=== PATIENT | female | born 1985 | race Caucasian/White ===

== ENCOUNTER 2022-10-04 15:36 | Emergency (ER) | payer BC, SELFPAY ==
--- NOTE | 2022-10-04 15:43 | ED.URI ---
HPI - URI/Sore Throat General Chief Complaint: Upper Respiratory Infection Stated Complaint: COUGH/BODY ACHES/CHILLS/HEADACHE Time Seen by Provider: 10/04/22 15:43 Source: patient Mode of arrival: ambulatory Limitations: no limitations History of Present Illness HPI Narrative: 37-year-old female presents with complaint cough, nasal congestion, headaches, body aches, chills for 3 days. Taking [id number] DayQuil to treat symptoms. Denies nausea vomiting diarrhea. No chest pain or shortness breath. All systems reviewed and negative except as noted above. Related Data Allergies Allergy/AdvReac Type Severity Reaction Status Date / Time No Known Allergies Allergy Verified 10/04/22 15:47 Review of Systems Review of Systems: CONSTITUTIONAL: Denies fever. Reports chills, or sweats. EYES: Denies visual changes, redness, or discharge. ENT: Reports rhinorrhea, congestion, sore throat. Denies otalgia. CARDIOVASCULAR: Denies chest pain, palpitations, or edema. RESPIRATORY: Reports cough. Denies dyspnea. GASTROINTESTINAL: Denies abdominal pain, nausea, vomiting, or diarrhea. GENITOURINARY: Denies dysuria or hematuria. SKIN: Denies rash or itching. MUSCULOSKELETAL: Denies back pain, joint pain, or myalgia. NEUROLOGIC: Denies headache, numbness, or weakness. PSYCHIATRIC: Denies anxiety or depression. All other systems reviewed are negative, except as documented in HPI. [facility] Past Medical History Medical History Abnormal Pap smear of cervix 08/01/2010 [facility] hpv positive/ colpo 08/23/2010 -Benign/ 2013 ascus +hpv; 03/28/15 ascus neg hpv; Anxiety HPV in female Panic attack (~03/18/12) Surgical History Surgical History History of colposcopy with cervical biopsy (08/23/10) benign Family History Family History Mother Patient's mother is in good health Father Patient's father is in good health Sibling Patient's sister is in good health Patient's brother is in good health Other Malignant neoplasm of lung maternal aunt Malignant neoplasm of prostate maternal uncle Other Family history of lung cancer Social History Social History (Updated 04/30/22 @ 14:36 by Nakia Ngo [facility]) Smoking status: Never smoker Alcohol intake: never Substance use: never Substance use type: does not use Living arrangements: other Additional living arrangements comments: single Occupation/Education: occupation 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 There is no relevant family history pertinent to the presenting complaint. Exam Narrative: GENERAL: This is a well-nourished, well-developed patient, in no apparent distress. HEAD: normocephalic, atraumatic. EYES: PERRL. Sclera clear/white. Vision is grossly intact. EARS: External ears normal, auditory canals clear and without drainage, TMs normal without perforation. Hearing grossly intact. NOSE: External nose normal with clear nasal drainage. THROAT: Mucous membranes moist, posterior pharynx clear. NECK: Neck supple, non-tender without lymphadenopathy, masses or thyromegaly. CARDIOVASCULAR: Regular rate and rhythm without murmurs, gallops, or rubs. RESPIRATORY: Clear to auscultation. Breath sounds equal bilaterally. No wheezes, rales, or rhonchi. SKIN: warm, Dry, intact with no suspicious lesions or rash, good texture and turgor. NEURO: awake, alert, and oriented to person, place and time. There were no obvious focal neurologic abnormalities. EXTREMITIES: No joint tenderness, effusion, or edema noted. Course Course Level of Care:
[2022-10-04 15:56] VITALS: BP 114/78; PULSE 84; RESP 16; TEMP 36.5; O2SAT 98
== END 2022-10-04 16:10 | disposition home or self-care (01) ==
PROVIDERS: Emergency Provider Nurse Practitioner Family
DX: U07.1 COVID-19 (principal)
CPT/HCPCS: 87426; 87804; 99212; C9803; G0463

== ENCOUNTER 2023-05-13 17:52 | Emergency (ER) | payer BC, SELFPAY ==
--- NOTE | 2023-05-13 17:54 | ED.URI ---
HPI - URI/Sore Throat General Chief Complaint: Upper Respiratory Infection Stated Complaint: Cough Time Seen by Provider: 05/13/23 17:54 Source: patient Mode of arrival: ambulatory Limitations: no limitations History of Present Illness HPI Narrative: Sparkle is a 37-year-old female patient presenting to the clinic today with complaints of a cough x2 weeks. She reports cough is nonproductive. Denies any known fever or chills. Denies any chest pain or shortness breath. Related Data Allergies Allergy/AdvReac Type Severity Reaction Status Date / Time No Known Allergies Allergy Verified 05/13/23 17:58 Review of Systems Review of Systems: Pertinent positives per HPI. Patient denies any fever, chills, rash, headache, visual changes, dizziness,runny nose, sore throat, shortness of breath, chest pain, palpitations, nausea, vomiting, diarrhea, constipation, abdominal pain, or any urinary issues. [facility] Past Medical History Medical History Abnormal Pap smear of cervix 08/01/2010 [facility] hpv positive/ colpo 08/23/2010 -Benign/ 2012 ascus +hpv; 03/28/15 ascus neg hpv; Anxiety HPV in female Panic attack (~03/18/12) Surgical History Surgical History History of colposcopy with cervical biopsy (08/23/10) benign Family History Family History Mother Patient's mother is in good health Father Patient's father is in good health Sibling Patient's sister is in good health Patient's brother is in good health Other Malignant neoplasm of lung maternal aunt Malignant neoplasm of prostate maternal uncle Other Family history of lung cancer Social History Social History Smoking status: Never smoker Alcohol intake: never Substance use: never Substance use type: does not use Living arrangements: other Additional living arrangements comments: single Occupation/Education: occupation 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 There is no relevant family history pertinent to the patient complaint. Exam Narrative: General: Well-developed, well nourished, in no apparent distress Head: Normocephalic, atraumatic Eyes: Pupils equally round and reactive to light bilaterally, EOM intact, sclera and conjunctive clear, no discharge, lids normal Ears: TMs intact and clear, ear canals clear, no drainage, grossly hearing normal. Nose: Nares patent, clear discharge, no inflammation, no sinus tenderness. Mouth: Oropharynx without lesions or masses, good dentition, MMM. Neck: Supple, trachea midline, no enlargement of anterior or posterior cervical nodes, no thyroid masses or goiter palpable. Cardio: Regular rate and rhythm, s1 and s2 normal, no murmur appreciated. Resp: Faint expiratory wheezing heard over the right upper and middle lobes posteriorly, no rhonchi, rales, or rubs Course Course Emergency Course: Portions of this record may have been created with voice recognition software. Level of Care: Express Care Visit Vital Signs Vital signs: Vital signs reviewed MDM - URI/Sore Throat MDM Narrative Medical decision making narrative: At the time of visit patient is resting comfortably on the exam table. I suspect patient has acute bronchitis. Prescription for prednisone and albuterol inhaler was sent to the pharmacy and supportive measures were discussed with the patient. She voiced understanding discharge instructions agrees to treatment plan. Differential Diagnosis Differential diagn
[2023-05-13 17:59] VITALS: BP 112/76; PULSE 79; RESP 16; TEMP 36.6; O2SAT 99
== END 2023-05-13 18:12 | disposition home or self-care (01) ==
PROVIDERS: Emergency Provider Nurse Practitioner Family
DX: J40 Bronchitis, not specified as acute or chronic (principal)
CPT/HCPCS: 99213; G0463

== ENCOUNTER 2023-08-20 10:05 | Emergency (ER) | payer BC, SELFPAY ==
--- NOTE | 2023-08-20 10:10 | ED.URI ---
HPI - URI/Sore Throat General Chief Complaint: Upper Respiratory Infection Stated Complaint: Cold symptoms Time Seen by Provider: 08/20/23 10:11 Source: patient Mode of arrival: ambulatory Limitations: no limitations History of Present Illness HPI Narrative: Sparkle is a 38-year-old female patient presenting to the clinic today with complaints of runny nose, cough, congestion, sneezing, and fatigue x3 days. She reports no known fever or chills. Denies any shortness of breath or chest pain. MD elicited complaint: cough, nasal congestion and other (Runny nose, sneezing) Related Data Allergies Allergy/AdvReac Type Severity Reaction Status Date / Time No Known Allergies Allergy Verified 07/16/23 15:13 Review of Systems Review of Systems: Pertinent positives per HPI. Patient denies any fever, chills, rash, headache, visual changes, dizziness, shortness of breath, chest pain, palpitations, nausea, vomiting, diarrhea, constipation, abdominal pain, or any urinary issues. [facility] Past Medical History Medical History Abnormal Pap smear of cervix 08/01/2010 [facility] hpv positive/ colpo 08/23/2010 -Benign/ 2012 ascus +hpv; 03/28/15 ascus neg hpv; Anxiety HPV in female Panic attack (~03/18/12) Surgical History Surgical History History of colposcopy with cervical biopsy (08/23/10) benign Family History Family History Mother Patient's mother is in good health Father Patient's father is in good health Sibling Patient's sister is in good health Patient's brother is in good health Other Malignant neoplasm of lung maternal aunt Malignant neoplasm of prostate maternal uncle Other Family history of lung cancer Social History Social History Smoking status: Never smoker Second hand tobacco smoke exposure: No Alcohol intake: never Substance use: never Substance use type: does not use Living arrangements: other Additional living arrangements comments: single Occupation/Education: occupation 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 There is no relevant family history pertinent to the patient complaint. Exam Narrative: General: Well-developed, well nourished, in no apparent distress Head: Normocephalic, atraumatic Eyes: Pupils equally round and reactive to light bilaterally, EOM intact, sclera and conjunctive clear, no discharge, lids normal Ears: TMs intact and congested, ear canals clear, no drainage, grossly hearing normal. Nose: Nares patent, clear nasal discharge, no inflammation, no sinus tenderness. Mouth: Oral pharynx without lesions or masses, good dentition, MMM. Neck: Supple, trachea midline, no enlargement of anterior or posterior cervical nodes, no thyroid masses or goiter palpable. Cardio: Regular rate and rhythm, s1 and s2 normal, no murmur appreciated. Resp: Clear to auscultation bilaterally, no rhonchi, rales, wheezing or rubs Course Course Emergency Course: Portions of this record may have been created with voice recognition software. Level of Care: Express Care Visit Vital Signs Vital signs: Vital signs reviewed MDM - URI/Sore Throat MDM Narrative Medical decision making narrative: At the time of visit patient is resting comfortably on the exam table. Patient appears to be nontoxic. COVID and influenza testing was performed. COVID testing was negative. Influenza test was positive for influenza B. work note was given. Supportive measures were
[2023-08-20 10:11] VITALS: BP 125/80; PULSE 90; RESP 16; TEMP 36.9; O2SAT 99
== END 2023-08-20 10:35 | disposition home or self-care (01) ==
PROVIDERS: Emergency Provider Nurse Practitioner Family
DX: J10.1 Influenza due to other identified influenza virus with other respiratory manifestations (principal); Z20.822 Contact with and (suspected) exposure to COVID-19
CPT/HCPCS: 87426; 87804; 99213; G0463

== ENCOUNTER 2024-02-10 11:31 | Emergency (ER) | payer BC, SELFPAY ==
--- NOTE | 2024-02-10 11:41 | ED.HA ---
HPI - Headache General Chief Complaint: Headache Stated Complaint: Headaches Time Seen by Provider: 02/10/24 11:43 Source: patient Mode of arrival: ambulatory Limitations: no limitations History of Present Illness HPI Narrative: 38-year-old female presents with concern for intermittent headache. She reports bilateral headache that is intermittent. Reports she took Tylenol that did not help her headache that she started taking DayQuil and it did help her headache. She reports general malaise but denies fever, body aches, chills. Reports nighttime sweats. She denies thunderclap headache, weakness in any extremity. She denies vision changes. She reports initially she had a sore throat. She denies nausea vomiting MD elicited complaint: headache Related Data Allergies Allergy/AdvReac Type Severity Reaction Status Date / Time No Known Allergies Allergy Verified 02/10/24 11:42 Review of Systems Review of Systems: CONSTITUTIONAL: Reports malaise, sweats. Denies chills or fever. EYES: Denies visual changes, redness, or discharge. ENT: Denies rhinorrhea, congestion, sinus pain, otalgia. Reports 1 time sore throat. CARDIOVASCULAR: Denies chest pain, palpitations, or edema. RESPIRATORY: Denies cough or dyspnea. GASTROINTESTINAL: Denies abdominal pain, nausea, vomiting SKIN: Denies rash or itching. MUSCULOSKELETAL: Denies back pain, joint pain, or myalgia. NEUROLOGIC: Denies numbness, weakness. Reports headache. All systems reviewed & are unremarkable except as noted in HPI and below PMFSH Past Medical History Medical History Abnormal Pap smear of cervix 08/01/2010 [facility] hpv positive/ colpo 08/23/2010 -Benign/ 2013 ascus +hpv; 03/28/15 ascus neg hpv; Anxiety HPV in female Panic attack (~03/18/12) Surgical History Surgical History History of colposcopy with cervical biopsy (08/23/10) benign Family History Family History Mother Patient's mother is in good health Father Patient's father is in good health Sibling Patient's sister is in good health Patient's brother is in good health Other Malignant neoplasm of lung maternal aunt Malignant neoplasm of prostate maternal uncle Other Family history of lung cancer Social History Social History Smoking status: Never smoker Second hand tobacco smoke exposure: No Alcohol intake: never Substance use: never Substance use type: does not use Living arrangements: other Additional living arrangements comments: single Occupation/Education: occupation 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 There is no relevant family history pertinent to the presenting complaint Exam Narrative: GENERAL: Well-appearing, well-nourished, and in no acute distress. HEAD: Normocephalic, atraumatic. EYES: PERRLA, sclera clear, and EOMI. No nystagmus. ENT: Nares clear. Mucous membranes moist. TM pearly dial with sharp light reflex bilaterally; no tragal tenderness. Oropharynx without erythema or lesions. Tonsils not enlarged and without exudate. NECK: Supple. No lymphadenopathy. No jugular venous distension, thyromegaly, or carotid bruits. Carotids were easily palpable bilaterally. CHEST: No respiratory distress. Clear to auscultation. No bony deformities, no asymmetry. Speaks in full sentences. HEART: Regular rate and rhythm. No murmur heard. Normal peripheral pulses. SKIN: Warm, dry, no visible rash. NEURO: Alert and oriented x3. No focal deficits. Cranial nerves II through
[2024-02-10 11:44] VITALS: BP 128/89; PULSE 80; RESP 14; TEMP 36.6; O2SAT 100
[2024-02-10 12:31] LABS: EDSTREPNEGPOS1 Presumptive Negative
== END 2024-02-10 12:09 | disposition home or self-care (01) ==
PROVIDERS: Emergency Provider Nurse Practitioner
DX: R51.9 Headache, unspecified (principal)
CPT/HCPCS: 87081; 87880; 99213; G0463

== ENCOUNTER 2024-02-15 16:24 | Emergency (ER) | payer BC, SELFPAY ==
--- NOTE | 2024-02-15 16:32 | ED.HA ---
HPI - Headache General Chief Complaint: Headache Stated Complaint: HEADACHE Time Seen by Provider: 02/15/24 16:46 Source: patient, RN notes reviewed and old records reviewed Mode of arrival: ambulatory Limitations: no limitations History of Present Illness HPI Narrative: patient presents with complaints of intermittent headache, runny nose, fatigue, poor sleep, for approximately 10 days. She reports that she has been taking Sudafed and Zyrtec for her symptoms. Reports some days are good, some days are not so good. She denies any headache right this minute. She denies fever, chills, sweats. She voices no other concerns or complaints at this time Related Data Allergies Allergy/AdvReac Type Severity Reaction Status Date / Time No Known Allergies Allergy Verified 02/15/24 16:25 Review of Systems Review of Systems: All systems reviewed & are unremarkable except as noted in HPI and below Constitutional: Constitutional: Reports as per HPI and Reports no additional constitutional complaints ENT: Reports system reviewed and no additional complaints, except as documented Cardiovascular: Cardiovascular: Reports no additional cardiovascular complaints Respiratory: Respiratory: Reports no additional respiratory complaints Gastrointestinal: Gastrointestinal: Reports no additional gastrointestinal complaints PMFSH Past Medical History Medical History Abnormal Pap smear of cervix 08/01/2010 [facility] hpv positive/ colpo 08/23/2010 -/ 2012 ascus +hpv; 03/28/15 ascus neg hpv; Anxiety HPV in female Panic attack (~03/18/12) Surgical History Surgical History History of colposcopy with cervical biopsy (08/23/10) benign Family History Family History Mother Patient's mother is in good health Father Patient's father is in good health Sibling Patient's sister is in good health Patient's brother is in good health Other Malignant neoplasm of lung maternal aunt Malignant neoplasm of prostate maternal uncle Other Family history of lung cancer Social History Social History Smoking status: Never smoker Second hand tobacco smoke exposure: No Alcohol intake: never Substance use: never Substance use type: does not use Living arrangements: other Additional living arrangements comments: single Occupation/Education: occupation 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 There is no relevant family history pertinent to the patient complaint. Exam Const: General: cooperative, no acute distress, alert and awake Orientation/consciousness: oriented to person, oriented to place and oriented to time HENMT: Head: normal to inspection Resp: Effort & Inspection: normal respiratory effort and able to speak in complete sentences Auscultation: clear to auscultation bilaterally, no crackles, no rales, no rhonchi and no wheezes Cardio: Palpation: normal PMI Rate: regular rate Rhythm: regular rhythm Heart sounds: S1 normal heart sound present and S2 normal heart sound present Neuro: General: oriented to person, oriented to place and oriented to time Cranial nerves: Yes CN's II-XII intact bilaterally Psych: Appearance: grossly normal Thought process: Normal thought process present Insight: Good insight present (Psych) Judgement: Good judgement present (Psych) Course Course Level of Care: Express Care Visit Vital Signs Vital signs: Reviewed MDM - Headache MDM Narrative Medical decision making narr
[2024-02-15 16:34] VITALS: BP 116/77; PULSE 107; RESP 16; TEMP 36.7; O2SAT 98
== END 2024-02-15 17:11 | disposition home or self-care (01) ==
PROVIDERS: Emergency Provider Nurse Practitioner Family
DX: B34.9 Viral infection, unspecified (principal); Z20.822 Contact with and (suspected) exposure to COVID-19
CPT/HCPCS: 87426; 99213; G0463

== ENCOUNTER 2024-02-18 14:17 | Observation (INO) | payer BC, SELFPAY ==
--- NOTE | ~2024-02-18 | CT_ITS ---
EXAMINATION: CT brain wo con DATE: 02/18/2024 15:03 INDICATION: headache . TECHNIQUE: Computed tomography (CT) of the head was performed without intravenous contrast. The mA wa s adjusted according to patient size. Iterative reconstruction technique was employed. The dose-lengt h product was 605.33 mGy-cm. COMPARISON: None. FINDINGS: No acute intracranial hemorrhage or extra-axial fluid collection. 1.5 x 1.4 x 1.4 mildly irregular and lobulated, hyperdense mass in the right frontal lobe. No signifi cant surrounding vasogenic edema. No hydrocephalus or herniation. No acute ischemic infarct. Unremarkable dural venous sinus attenuation. No acute osseous abnormality. The aerated spaces are clear. Preet cisterna magna. IMPRESSION: 1.5 cm right frontal lobe mass. Recommend MRI of the brain without and with contrast for further eval uation. Reviewed, dictated and finalized at location K. IMPRESSION: 1.5 cm right frontal lobe mass. Recommend MRI of the brain without and with con trast for further evaluation.
--- NOTE | ~2024-02-18 | MR_ITS ---
MRI of the brain Clinical History: Frontal mass Technique: Axial and sagittal T1-weighted images were acquired. These were followed by axial T2-weigh bryn, diffusion weighted, gradient, and FLAIR images. Following intravenous administration of 17 cc Mu ltiHance gadolinium, T1-weighted fat-sat imaging was performed in the axial, coronal, and sagittal pl anes. Findings: 1.8 cm right frontal lobe mass demonstrates predominant T2 hyperintensity with small foci o f low signal, with a low signal rim, most compatible with cavernoma. There is minimal amorphous T1 in trinsic hyperintensity lesion. There are additional smaller focal areas of hyperintense signal on FLA IR images, notably in the right hina (axial FLAIR image 9), right temporal lobe (axial FLAIR image 13 ), and right frontoparietal region (axial FLAIR image 18). These additional areas of FLAIR hyperinten sity demonstrate corresponding low signal on gradient images. There is prominent cisterna magna versus arachnoid cyst. Remaining subarachnoid spaces and ventricles are nondilated. Orbits are unremarkable. Paranasal sinuses and mastoid air sinuses are essentially c lear. Major intracranial flow voids are intact. Sagittal midline structures are intact. No abnormal postcontrast enhancement identified. IMPRESSION: 1.8 cm right frontal lobe mass is compatible with cavernoma, and corresponds with lesion seen on CT s can. Several additional scattered smaller parenchymal lesions, as detailed above, which could reflect gene tional smaller less well delineated cavernomas. Arachnoid cyst versus prominent cisterna magna. Reviewed, dictated and finalized at location . IMPRESSION: 1.8 cm right frontal lobe mass is compatible with cavernoma, and corresponds wi th lesion seen on CT scan. Several additional scattered smaller parenchymal lesions, as detailed above, wh ich could reflect additional smaller less well delineated cavernomas. Arachnoid cyst versus prominent cisterna magna.
--- NOTE | ~2024-02-18 | US_ITS ---
US abdomen limited INDICATION: Elevated liver function tests. PROCEDURE: Realtime right upper abdominal ultrasound. COMPARISON: No prior studies for comparison. FINDINGS: The pancreas is normal without focal mass or pancreatic ductal dilation. Liver echotexture is normal without focal mass or intrahepatic biliary dilatation. There is normal directional flow i n the portal vein. There is gallbladder sludge. No definite gallstones, gallbladder wall thickening or pericholecystic f luid. Common bile duct measures 4 mm. No sonographic Thurman's sign. IMPRESSION: 1: Gallbladder sludge. Reviewed, dictated and finalized at location B. IMPRESSION: 1: Gallbladder sludge.
[2024-02-18 14:20] VITALS: BP 119/83; PULSE 123; RESP 16; TEMP 36.8; O2SAT 99
[2024-02-18 14:41] VITALS: BP 116/81; PULSE 114; RESP 19; O2SAT 99
[2024-02-18 15:57] VITALS: BP 102/69; PULSE 93; RESP 18; O2SAT 98
[2024-02-18 16:06] LABS: Basophils Absolute Auto 0.1 K/mm3 (0.0-0.1); Basophils Percent Auto 0.6 % (0.2-1.2); Eosinophils Percent Auto 0.3 % (0-4.4); Hematocrit 39.9 % (37.0-47.0); Hemoglobin 13.8 g/dL (12.0-15.0); Immature Granulocyte Absolute 0.03 K/mm3 (0.00-0.031); Immature Granulocyte Percent A 0.4 % (0-0.5); Lymphocytes Absolute Auto 4.13 K/mm3 (0.9-3.2); Lymphocytes Percent Auto 51.9 % (18.3-44.2); Mean Corpuscular HGB Conc 34.6 g/dl (32-36); Mean Corpuscular Hemoglobin 30.2 pg (26-34); Mean Corpuscular Volume 87.3 fl (80-100); Mean Platelet Volume 8.4 fl (7.4-10.4); Monocytes Absolute Auto 0.4 K/mm3 (0.1-0.6); Monocytes Percent Auto 4.9 % (2.6-8.5); Neutrophils Absolute Auto 3.3 K/mm3 (1.3-6.7); Neutrophils Percent Auto 41.9 % (45.5-73.1); Platelet Count Result 227 k/mm3 (150-375); Red Blood Count 4.57 M/mm3 (4.2-5.4)
[2024-02-18] MEDS: KETOROLAC 30 MG/ML VIAL (*BKC) IV PUSH (16:18)
[2024-02-18 16:21] LABS: Alanine Aminotransferase 76 U/L (6-35); Alkaline Phosphatase 146 U/L (38-126); Anion Gap 7 mmol/L (4-12); Aspartate Amino Transferase 70 U/L (14-36); Blood Urea Nitrogen 10 mg/dL (7-17); CRP 5.7 mg/dL (<1.0); Calcium 8.5 mg/dL (8.4-10.2); Carbon Dioxide 27 mmol/L (22-30); Chloride 99 mmol/L (98-107); Estimated CRCL calculation 105 ml/min; Estimated Glomerular Filt Rate > 60; Glucose 98 mg/dL (65-110); Potassium 3.9 mmol/L (3.4-5.0); Sodium 133 mmol/L (137-145)
[2024-02-18 16:30] LABS: Platelet Estimate Adequate (Adequate); Schistocytes None Seen
[2024-02-18 16:31] LABS: Atypical Lymphocytes Present
--- NOTE | 2024-02-18 17:01 | ED.HA ---
HPI - Headache General Chief Complaint: Headache Stated Complaint: headaches for a couple weeks Time Seen by Provider: 02/18/24 14:37 Source: patient Mode of arrival: ambulatory Limitations: no limitations History of Present Illness HPI Narrative: 38-year-old otherwise healthy here with the complaints of having frontal headaches on and off for quite some time. Patient states that she is getting more frequently. She denies any fever or chills. No history of nausea vomiting. Denies any blurred vision. Patient states that she has not seen primary doctor for while ,she is in the process of finding a new doctor . She denies any weakness. Sleep is very disturbed elicited complaint: headache Onset (ago): week(s) Onset description: gradually Location: right Severity: moderate Quality & Timing: throbbing Exacerbating factors: none Relieving factors: nothing Context: occurred at rest Associated symptoms: none Related Data Allergies Allergy/AdvReac Type Severity Reaction Status Date / Time No Known Allergies Allergy Verified 02/18/24 14:18 Review of Systems Review of Systems: All systems reviewed & are unremarkable except as noted in HPI and below Constitutional: Constitutional: Reports no additional constitutional complaints Eyes: Eyes: Reports no additional eye complaints ENT: Reports system reviewed and no additional complaints, except as documented Cardiovascular: Cardiovascular: Reports no additional cardiovascular complaints Respiratory: Respiratory: Reports no additional respiratory complaints Gastrointestinal: Gastrointestinal: Reports no additional gastrointestinal complaints Musculoskeletal: Musculoskeletal: Reports no additional musculoskeletal complaints Neurologic: Reports system reviewed and no additional complaints, except as documented Psychiatric: Psychiatric: Reports no additional psychiatric complaints Endocrine: Endocrine: Reports no additional endocrine complaints Hematologic/Lymphatic: Hematologic/Lymphatic: Reports no additional hematologic/lymphatic complaints [facility] Past Medical History Medical History Abnormal Pap smear of cervix 08/01/2010 [facility] hpv positive/ colpo 08/23/2010 -/ 2013 ascus +hpv; 03/28/15 ascus neg hpv; Anxiety HPV in female Panic attack (~03/18/12) Surgical History Surgical History History of colposcopy with cervical biopsy (08/23/10) benign Family History Family History Mother Patient's mother is in good health Father Patient's father is in good health Sibling Patient's sister is in good health Patient's brother is in good health Other Malignant neoplasm of lung maternal aunt Malignant neoplasm of prostate maternal uncle Other Family history of lung cancer Social History Social History Smoking status: Never smoker Second hand tobacco smoke exposure: No Alcohol intake: never Substance use: never Substance use type: does not use Living arrangements: other Additional living arrangements comments: single Occupation/Education: occupation 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 HEAD: Normocephalic, atraumatic. EYES: PERRLA and EOMI. ENT: Nares clear, no rhinorrhea or epistaxis. Mucous membranes moist. NECK: Supple. CHEST: Clear to auscultation. No respiratory distress. HEART: Regular rate and rhythm. No murmur heard. Normal peripheral pulses. ABDOMEN: Soft, nontender, nondistended, normal active bowel sounds. EXTREMITIES: Normal range of motion.
[2024-02-18 17:02] LABS: Appearance Urine Cloudy (Clear); Bacteria Urine 1+ /hpf; Bilirubin Urine 2+ (Negative); Blood Urine Negative (Negative); Color Urine Dark Yellow (Yellow); Glucose Urine UA Negative (Negative); Ketones Urine Trace mg/dL (Negative); Leukocyte Esterase Ur 3+ LEU/UL (Negative); Nitrate Urine Positive (Negative); Non Pathogenic Casts 0-2; Protein Urine 1+ mg/dL (Negative); Specific Grav Ur 1.032 (1.001-1.035); Squamous Epithelial Cell Urine Occasional /hpf (Few); WBC Urine 21-50 /hpf (0-3); pH Urine 5.5 (5.0-9.0)
[2024-02-18 17:07] LABS: Add Urine Microscopic? YES
[2024-02-18 17:14] VITALS: BP 111/71; PULSE 101; RESP 19; O2SAT 98
--- NOTE | 2024-02-18 17:20 | PM.IMHP ---
H&P: HPI History of Present Illness Date/Time: 02/18/24 17:20 Chief Complaint: Headache. Narrative: This is a previously healthy 38-year-old female presented to the emergency department for evaluation of headache. The patient provides the following history. She has not been feeling well for almost 2 weeks with symptoms including intermittent headache, rhinorrhea, of fatigue, and poor sleep. She was seen at urgent care on 02/10/2024 and on 02/12/2024 for evaluation and was told she likely had a viral syndrome. Her headaches persists and she describes it and throbbing pain, initially throughout her whole head but more recently it has been in the front, right side of the head. She has been taking Tylenol every 4 6 hours without much relief.. She denies fever, chills, sweats, vertigo, vision changes, confusion, focal weakness, paresthesias, facial droop, difficulties speaking and swallowing, sore throat, chest and pleuritic pain, shortness of breath, nausea, vomiting, diarrhea, dysuria, urinary urgency and hesitancy, joint swelling, and rashes. Weight is stable. She denies personal and immediate family history of cancer. In the ED: She was afebrile on arrival with stable blood pressures. She has had intermittent tachycardia in the low 100s. Labs were significant for WBC count of 8.0, sodium 133, AST 70, ALT 76, alkaline phos is 146, CRP 5.7. Urine was positive for 1+ protein, trace ketones, positive nitrates, urobilinogen, 2+ bilirubin, 3+ leukocyte esterase, 3 to 5 RBC, 21 to 50 WBC, 1+ bacteria, and occasional squamous cells. CT scan showed a 1.5 cm right frontal lobe mass. As the patient does not have a primary care provider for close follow-up, she is being admitted for MRI and further evaluation. Review of Systems Review of Systems: 12 systems were reviewed and are negative except for as per HPI. [facility] Past Medical History Medical History (Updated 02/18/24 @ 17:27 by Allyson Mclaughlin PA-C) Abnormal Pap smear of cervix 08/01/2010 [facility] hpv positive/ colpo 08/23/2010 -/ 2012 ascus +hpv; 03/28/15 ascus neg hpv; Anxiety HPV in female Panic attack (03/18/12) Surgical History Surgical History History of colposcopy with cervical biopsy (08/23/10) benign Family History Family History Mother Patient's mother is in good health Father Patient's father is in good health Sibling Patient's sister is in good health Patient's brother is in good health Other Malignant neoplasm of lung maternal aunt Malignant neoplasm of prostate maternal uncle Other Family history of lung cancer Social History Social History (Updated 02/18/24 @ 23:38 by Allyson Mclaughlin PA-C) Social History: Surrogate medical decision maker: Cornelia Lance, mother. Code status: Full code. 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
[2024-02-18 17:39] VITALS: BP 113/76; PULSE 97; RESP 15; TEMP 36.4; O2SAT 98
[2024-02-18 18:07] VITALS: BMI 29.3
[2024-02-18 20:03] VITALS: BP 114/72; PULSE 102; RESP 20; TEMP 37; O2SAT 94
[2024-02-18] MEDS: HYDROcodone/acetaminophen (*CRX) 5-325 MG TABLET 1 TAB PO (23:13)
[2024-02-18] MEDS: ALPRAZolam (*CRX) 0.125 MG TABLET PO (23:53)
[2024-02-19 00:12] LABS: Acetaminophen < 10 ug/mL (10-30)
[2024-02-19 04:57] VITALS: BP 103/63; PULSE 100; RESP 18; TEMP 37.4; O2SAT 94
[2024-02-19 05:12] LABS: Basophils Absolute Auto 0.1 K/mm3 (0.0-0.1); Eosinophils Percent Auto 0.4 % (0-4.4); Hematocrit 40.5 % (37.0-47.0); Hemoglobin 13.5 g/dL (12.0-15.0); Immature Granulocyte Absolute 0.02 K/mm3 (0.00-0.031); Immature Granulocyte Percent A 0.2 % (0-0.5); Lymphocytes Absolute Auto 4.89 K/mm3 (0.9-3.2); Lymphocytes Percent Auto 60.9 % (18.3-44.2); Mean Corpuscular HGB Conc 33.3 g/dl (32-36); Mean Corpuscular Hemoglobin 29.6 pg (26-34); Mean Corpuscular Volume 88.8 fl (80-100); Mean Platelet Volume 8.3 fl (7.4-10.4); Monocytes Absolute Auto 0.5 K/mm3 (0.1-0.6); Monocytes Percent Auto 5.6 % (2.6-8.5); Neutrophils Absolute Auto 2.6 K/mm3 (1.3-6.7); Neutrophils Percent Auto 31.9 % (45.5-73.1); Platelet Count Result 213 k/mm3 (150-375); Red Blood Count 4.56 M/mm3 (4.2-5.4); Red Cell Distribution Width 12.8 % (11.5-14.5)
[2024-02-19 05:24] LABS: Alanine Aminotransferase 78 U/L (6-35); Albumin Level 3.7 g/dL (3.5-5.1); Alkaline Phosphatase 138 U/L (38-126); Anion Gap 9 mmol/L (4-12); Aspartate Amino Transferase 81 U/L (14-36); Bilirubin,Total 1.2 mg/dL (0.2-1.3); Blood Urea Nitrogen 12 mg/dL (7-17); Calcium 8.5 mg/dL (8.4-10.2); Carbon Dioxide 28 mmol/L (22-30); Chloride 98 mmol/L (98-107); Estimated CRCL calculation 105 ml/min; Estimated Glomerular Filt Rate > 60; Glucose 102 mg/dL (65-110); Magnesium 2.1 mg/dL (1.6-2.3); Potassium 4.6 mmol/L (3.4-5.0); Sodium 135 mmol/L (137-145)
[2024-02-19 05:35] LABS: Platelet Estimate Adequate (Adequate)
[2024-02-19 05:36] LABS: Hypochromasia 1+; Schistocytes None Seen
[2024-02-19 06:22] LABS: Hepatitis B Surface Antigen Negative (Negative)
[2024-02-19] MEDS: HYDROcodone/acetaminophen (*CRX) 5-325 MG TABLET 1 TAB PO (06:27)
[2024-02-19 06:28] LABS: HAV RESULT Negative (Negative); Hepatitis B Core IgM Result Negative (Negative)
[2024-02-19 06:39] LABS: Hepatitis C Virus Antibody Negative (Negative)
[2024-02-19 08:31] VITALS: O2SAT 93
[2024-02-19 09:06] VITALS: BP 94/60; PULSE 92; RESP 18; TEMP 36.9; O2SAT 97
[2024-02-19 13:58] VITALS: BP 108/72; PULSE 95; RESP 18; TEMP 36.9; O2SAT 99
--- NOTE | 2024-02-19 18:11 | PM.DS ---
DS: Admitting Diagnosis Discharge Date 02/19/24 Admitting Diagnosis Headache DS: Discharge Diagnosis Discharge Diagnosis (1) Right frontal lobe mass: Code(s): G93.89 - Other specified disorders of brain Status: Acute (2) Elevated LFTs: Code(s): R79.89 - Other specified abnormal findings of blood chemistry Status: Acute (3) Abnormal urinalysis: Code(s): R82.90 - Unspecified abnormal findings in urine Status: Acute (4) Headache: Qualifiers: Headache chronicity pattern: episodic headache Headache type: unspecified Intractability: intractable Qualified Code(s): R51.9 - Headache, unspecified Code(s): R51.9 - Headache, unspecified Status: Acute (5) Cerebral cavernoma: Code(s): Q28.3 - Other malformations of cerebral vessels Status: Acute (6) Arachnoid cyst: Code(s): G93.0 - Cerebral cysts Status: Acute DS: Summary Hospital Course Reason for hospitalization: Healthy 38-year-old female presented to the emergency department for evaluation of headache. Please see H&P for details. Hospital Course: The patient presented to the emergency department for evaluation of ongoing headache. CBC normal with mild lymphocytosis. Sodium 133 and up to 135 on repeat. AST/ALT slightly elevated. CRP 5.7. UA was abnormal with urine culture pending. No urinary symptoms so abx held. UPT was negative. She has been taking acetaminophen for her headache at home but level here <10. Covid test was negative on 02/15/24. Hepatitis panel was negative. Brain CT shows a 1.5 cm right frontal lobe mass. Abdominal exam was benign. Right upper quadrant ultrasound showing GB sludge otherwise normal. Brain MRI ordered showing a 1.8 cm right frontal lobe mass compatible with cavernoma with several scattered smaller parenchymal lesions which could be smaller less well delineated cavernomas. Also with prominent cisterna magna vs arachnoid cyst. Discussed case with Neurosurgery on-call. They felt these findings are more likely chronic and congenital but did recommend follow-up in the clinic. The findings were discussed and patient was reassured. Her symptoms could be related to viral etiology with elevated AST/ALT. She was treated with Toradol x1, Xanax x1 and Gassaway x2 with good results. Her headache is waning. No further headache, No numbness, tingling or weakness in her arms or legs. No n/v. She overall did well and was able to be discharged home on 02/19/24. Status at Discharge Cognitive/behavioral status at discharge: stable Time Spent with Patient Time attestation: Total time spent providing and/or coordinating discharge services: 35 minutes Time spent: Greater than 30 minutes Exam Narrative: 98.4 108/72 95 18 99% ra Gen - NARD Chest - CTA bilaterally, nml RR CV - RRR S1/S2 Abd - Soft, NT/ND, Positive BS Ext - No pedal edema Neuro - Alert and oriented. Nonfocal exam. Psych - Nml mood and affect Skin - Warm and dry DS: Data Data Completed and Pending Labs on day of discharge: Labs from last 24 hours 02/19/24 02/18/24 05:05 23:50 WBC 8.0 RBC 4.56 Hgb 13.5 Hct 40.5 MCV 88.8 MCH 29.6 MCHC 33.3 RDW 12.8 Plt Count 213 MPV 8.3 Immature Gran % (Auto) 0.2 Neut % (Auto) 31.9 L Lymph % (Auto) 60.9 H Payne % (Auto) 5.6 Eos % (Auto) 0.4 Baso % (Auto) 1.0 Lymph # (Auto) 4.89 H Payne # (Auto) 0.5 Eos # (Auto) 0.0 Baso # (Auto) 0.1 Abs Immat Gran (auto) 0.02 Absolute Neuts (auto) 2.6 Absolute Nucleated RBC 0.000 Nucleated RBC % 0.0 Platelet Estimate Adequate Hypochromasia 1+ Schistocytes None seen Sodium 135 L Potassium 4.6 Chloride 98 Carbon Dioxide 28 Anion Gap 9 BUN 12 Creatinine 0.70 Estim Creat Clear Calc 105 Estimated GFR > 60 Glucose 102 Calcium 8.5 Magnesium 2.1 Total Bilirubin 1.2 AST 81 H ALT 78 H Alkaline Phosphatase 138 H Total Pr
--- NOTE | 2024-02-24 08:33 | PC.NURSE ---
Urine cx is negative. Dr. Tracey kerr.
== END 2024-02-19 18:45 | disposition home or self-care (01) ==
LOC: ANHED 17:08 → ANH2MED 02-19 18:30
PROVIDERS: Physician Assistant; Admitting Provider Internal Medicine; Emergency Provider Family Medicine; Visit Provider Internal Medicine
DX: Q28.3 Other malformations of cerebral vessels (principal); G93.0 Cerebral cysts; R79.89 Other specified abnormal findings of blood chemistry; R82.90 Unspecified abnormal findings in urine; D72.820 Lymphocytosis (symptomatic)
CPT/HCPCS: 36415; 70450; 70553; 76705; 80053; 80074; 80307; 81001; 81025; 83735; 85025; 86140; 87086; 96374; 99285; A9270; A9577; G0378; J1885

== ENCOUNTER 2024-11-17 12:59 | Emergency (ER) | payer OTHER, SELFPAY ==
--- NOTE | 2024-11-17 13:04 | ED_ITS ---
HPI - URI/Sore Throat General Chief Complaint: Upper Respiratory Infection Stated Complaint: COUGH/RUNNY NOSE Time Seen by Provider: 11/17/24 13:10 Source: patient Mode of arrival: ambulatory Limitations: no limitations History of Present Illness HPI Narrative: Sparkle is a 39-year-old female patient presenting to the clinic today with complaints of a cough and runny nose times per 1.5 weeks. Denies any sinus pres sure. States the productive cough is white and yellow at times. Denies any shortness of breath or chest pain. No history of asthma or COPD. She is a nonsmoker. No fever, chills, body aches. Related Data Allergies Allergy/AdvReac Type Severity Reaction Status Date / Time No Known Allergies Allergy Verified 11/17/24 13:09 Review of Systems Review of Systems: Pertinent positives per HPI. Patient denies any fever, chills, rash, headache, visual changes, dizziness, cough, shortness of breath, chest pain, palpitations, nausea, vomiting, diarrhea, constipation, abdominal pain, or any urinary issues. [facility] Past Medical History Medical History Arachnoid cyst Cerebral cavernoma Panic attack (03/18/12) Anxiety HPV in female Abnormal Pap smear of cervix 08/01/2010 [facility] hpv positive/ colpo 08/23/2010 -Benign/ 2013 ascus +hpv; 03/28/15 ascus neg hpv; Surgical History Surgical History History of colposcopy with cervical biopsy (08/23/10) benign Family History Family History Mother Patient's mother is in good health Hypertension Father Patient's father is in good health Sibling Patient's sister is in good health Patient's brother is in good health Other Malignant neoplasm of lung maternal aunt Malignant neoplasm of prostate maternal uncle Other Family history of lung cancer Social History Social History Social History: Surrogate medical decision maker: Cornelia Lance, mother. Code status: Full code. 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 There is no relevant family history pertinent to the patient complaint. Exam Narrative: General: Well-developed, well nourished, in no apparent distress Head: Normocephalic, atraumatic Eyes: Pupils equally round and reactive to light bilaterally, EOM intact, sclera and conjunctive clear, no discharge, lids normal Ears: TMs intact and clear, ear canals clear, no drainage, grossly hearing normal. Nose: Nares patent, clear nasal discharge, moderate inflammation, no sinus tenderness. Mouth: Oral pharynx without lesions or masses, good dentition, MMM. Postnasal drip Neck: Supple, trachea midline, no enlargement of anterior or posterior cervical nodes, no thyroid masses or goiter palpable. Cardio: Regular rate and rhythm, s1 and s2 normal, no murmur appreciated. Resp: Clear to auscultation bilaterally, no rhonchi, rales, wheezing or rubs Course Course Emergency Course: Portions of this record may have been created with voice recognition software. Level of Care: Express Care Visit Vital Signs Vital signs: Vital Signs Temperature 36.7 C 11/17/24 13:07 Pulse Rate 75 11/17/24 13:07 Respiratory Rate 16 11/17/24 13:07 Blood Pressure 112/72 11/17/24 13:07 Pulse Oximetry 98 11/17/24 13:07 Oxygen Delivery Room Air 11/17/24 13:07 Temperature 36.7 C 11/17/24 13:07 Pulse Rate 75 11/17/24 13:07 Respiratory Rate 16 11/17/24 13:07 Blood Pressure 112/72 11/17/24 13:07 Pulse Oximetry 98 11/17/24 13:07 Oxygen Delivery Room Air 11/17/24 13:09 Vital signs reviewed MDM - URI/Sore Throat MDM Narrative Medical decision making narrative: At the time of visit patient is resting comfortably on the exam table. Patient appears to be nontoxic. Plan: I suspect patient has URI with cough and congestion. Prescription for prednisone and albuterol inhaler was given. Supportive measures were discussed with the patient and they voiced understanding discharge instructions and agrees to treatment plan. Return precautions reviewed Differential Diagnosis Differential diagnosis: Likely upper respiratory infection, otitis media, sinusitis, viral infection, bronchitis, influenza, pharyngitis and other (COVID) Discharge Plan Discharge Clinical Impression: Upper respiratory infection with cough and congestion Patient Disposition: Home Condition: Stable Instructions: Antibiotic Form, Cold Symptoms (ED) Additional Instructions: Take prescription medications only as prescribed-prednisone and albuterol inhaler Increase fluids and stay well hydrated Tylenol/motrin for pain/fever Flonase and OTC antihistamines as directed Vicks vapor rub to open sinuses Sinus rinses for congestion Cepacol spray, cough drops, throat lozenges, warm tea with honey/lemon, gargle salt water to soothe throat BRAT diet for diarrhea Clear liquids x 24 hours then advance as tolerated for nausea/vomiting Go to the ED if you develop a worsening in your condition- high fever not controlled by Tylenol or Motrin, dehydration, weakness, lethargy, shortness of breath, or chest pain. Follow up with your PCP in 3-5 days if symptoms persist. Patient Language: Maori Prescriptions: New prednisone 20 mg tablet 40 mg PO DAILY 5 Days Qty: 10 0RF albuterol sulfate 90 mcg/actuation HFA aerosol inhaler 2 puff inhalation Q4-6H PRN (Reason: shortness of breath or wheezing) 30 Days Qty: 8.5 0RF No Action L norgest/e.estradiol-e.estrad [Ashlyna] 0.15 mg-30 mcg (84)/10 mcg (7) tablets,dose pack,3 month 1 tablet PO DAILY Qty: 91 4RF Follow-up/Referrals: Nahomy Ward DO [Primary Care Provider] - Time of Disposition: 13:18 Quality NIHSS Nursing Documentation ED NIHSS nursing documentation: reviewed/agree
[2024-11-17 13:07] VITALS: BP 112/72; PULSE 75; RESP 16; TEMP 36.7; O2SAT 98
== END 2024-11-17 13:22 | disposition home or self-care (01) ==
PROVIDERS: Emergency Provider Nurse Practitioner Family; PCP Family Medicine
DX: J06.9 Acute upper respiratory infection, unspecified (principal); R05.9 Cough, unspecified; Q28.3 Other malformations of cerebral vessels
CPT/HCPCS: 99213; G0463

== ENCOUNTER 2025-07-31 09:21 | Emergency (ER) | payer OTHER, SELFPAY ==
[2025-07-31 09:21] VITALS: BP 130/66; PULSE 74; RESP 16; TEMP 36.6; O2SAT 100
--- OUTSIDE RECORDS SUMMARY | 2025-07-31 09:22 | XMS_ITS | Clinical Summary ---
Author Organization [facility] Address [address] [place] [address] Care Team Providers Care Manager Systems Name Role Phone Amanda Gardner MD Primary Care Provider [phone] Source Comments [facility],non-owned Affiliates and Associated Physician Practices is amultiple site organization consisting of ambulatory clinics and hospital sitesin [place], [place], [place] and [place]. This disclosure is being madepursuant to the Care Everywhere program and may not contain all information available regarding this patient. Last updated 18.[facility] Allergies No known active allergies Medications * Be aware that medications may not be up to date on this document. Alwaysverify current medications with the patient. levonorgestrel-e thinyl estradiol (ASHLYNA) 0.15-0.03 &0.01 MG tablet Take 1 tablet by mouth once daily Active Family History Medical History Relation Name Comments Hyperlipidemia Father Relation Name Status Comments Father Alive Mother Alive Social History Tobacco Use Types Packs/Day Years Used Date Smoking Tobacco: Never Smokeless Tobacco: Never Comments No Sex and Gender Information Value Date Recorded Sex Assigned at Not on file Legal Sex Female 4:41 PM [employer] DES[employer] Gender Identity Not on file Sexual Orientation Not on file Last Filed Vital Signs Vital Sign Reading Time Taken Comments Blood Pressure 122/80 04/21/2019 12:06 PM CDT Pulse 82 04/21/2019 12:06 PM CDT Temperature 36.7 C (98.1 F) 04/21/2019 12:06 PM CDT Respiratory Rate 16 04/21/2019 12:06 PM CDT Oxygen Saturation 97% 04/21/2019 12:06 PM CDT Inhaled Oxygen Concentration - - Weight 68 kg (150 lb) 04/21/2019 12:06 PM CDT Height 170.2 cm (5' 7) 04/21/2019 12:06 PM CDT Body Mass Index 23.49 04/21/2019 12:06 PM CDT Plan of Treatment Health Maintenance Due Date Last Done Comments LIPID TESTING 1985 MAMMOGRAM 1985 HIV SCREENING 2000 HEPATITIS C SCREENING 06/14/2003 DTAP/TDAP/TD VACCINES (1 - Tdap) 2004 HEPATITIS B VACCINE (1 of 3 - 19+ 3-dose series) 2004 HPV VACCINE (1 - 3-dose SCDM series) 2012 DEPRESSION SCREENING 08/05/2024 COVID-19 VACCINE (1 - 2024-2 6 season) 2025 INFLUENZA VACCINE (#1) 2025 ZOSTER VACCINE (1 of 2) 2035 HIB VACCINE Aged Out No longer eligi ble based on patient's age to complete this topic MENINGOCOCCAL (Group B) VACC INE SHARED DECISION-MAKING Aged Out No longer eligibl e based on patient's age to complete this topic MENINGOCOCCAL GROUPS A/C/Y/W VACCINE Aged Out No longer eligible b ased on patient's age to complete this topic PNEUMOCOCCAL VACCINE Aged Out No long er eligible based on patient's age to complete this topic Care Teams Manager Systems Relationship Specialty Start Date End Date Amanda Gardner MD PCP - General Family Medicine 06/18/17
--- NOTE | 2025-07-31 10:06 | ED_ITS ---
HPI - General Adult General Chief complaint: Wound/Laceration Stated complaint: I think I need stitches Time Seen by Provider: 07/31/25 10:02 History of Present Illness HPI narrative: 40-year-old female presents with a laceration to the left arm. This prior to arrival she cut it on a clean knife. Tetanus up-to-date. She denies any neurovascular deficits or complaints. Related Data Home Medications ?Medication ?Instructions ?Recorded ?Confirmed ?Last Taken ?Type cholecalciferol (vitamin D3) 125 125 mcg PO DAILY 01/0402/03/25 Unknown History mcg (5,000 unit) capsule Allergies Allergy/AdvReac Type Severity Reaction Status Date / Time No Known Allergies Allergy Verified 07/31/25 09:24 Review of Systems Review of Systems: All systems reviewed & are unremarkable except as noted in HPI and below PMFSH Past Medical History Medical History Arachnoid cyst Cerebral cavernoma Panic attack (03/18/12) Anxiety HPV in female Abnormal Pap smear of cervix 08/01/2010 [facility] hpv positive/ colpo 08/23/2010 -Benign/ 2012 ascus +hpv; 03/28/15 ascus neg hpv; Surgical History Surgical History History of colposcopy with cervical biopsy (08/23/10) benign Family History Family History Mother Patient's mother is in good health Hypertension Father Patient's father is in good health Sibling Patient's sister is in good health Patient's brother is in good health Other Malignant neoplasm of lung maternal aunt Malignant neoplasm of prostate maternal uncle Other Family history of lung cancer Social History Social History Social History: Surrogate medical decision maker: Cornelia Lance, mother. Code status: Full code. 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 EYES: EOMI, conjunctiva normal ENT: Hearing grossly intact LUNGS: Nonlabored breathing. HEART: [Regular rate and rhythm] ABD: [Soft], [nontender to palpation] EXT: Normal range of motion SKIN: there is a 4 cm laceration on the left arm just posterior to the deltoid NEURO: [Alert. No gross focal sensory or strength deficits.] PSYCH: Normal affect Course Vital Signs Vital signs: Vital Signs Temperature 36.6 C 07/31/25 09:21 Pulse Rate 74 07/31/25 09:21 Respiratory Rate 16 07/31/25 09:21 Blood Pressure 130/66 07/31/25 09:21 Pulse Oximetry 100 07/31/25 09:21 Oxygen Delivery Room Air 07/31/25 09:21 Temperature 36.6 C 07/31/25 09:21 Pulse Rate 74 07/31/25 09:21 Respiratory Rate 16 07/31/25 09:21 Blood Pressure 130/66 07/31/25 09:21 Pulse Oximetry 100 07/31/25 09:21 Oxygen Delivery Room Air 07/31/25 09:21 Procedures Laceration Laceration 1: Site: upper extremity Side (If applicable): left Size (cm): 4 Description: linear Depth: simple, single layer Local Anesthetic: lidocaine 1% Pre-repair: irrigated and irrigated extensively ====== Skin Level ====== Size (cm): 4-0 Number of sutures: 4 Technique: simple, interrupted ====== Subcutaneous Layer ====== ====== Muscle Layer ====== ====== Tendon Layer ====== MDM Differential Diagnosis Differential Diagnosis: patient says laceration the left arm. Tetanus up-to-date. There is no evidence of neurovascular injury. It is approximated using nonabsorbable sutures as documented below. I instructed her return in 7-10 days for suture removal sooner for any fevers chills purulent discharge pain or new or concerning symptoms Discharge Plan Discharge Clinical Impression: Laceration Patient Disposition: Home Condition: Stable Instructions: Laceration (ED) Patient Language: Yoruba Prescriptions: No Action L norgest/e.estradiol-e.estrad [Ashlyna] 0.15 mg-30 mcg (84)/10 mcg (7) tablets,dose pack,3 month 1 tablet PO DAILY Qty: 91 4RF cholecalciferol (vitamin D3) 125 mcg (5,000 unit) capsule 125 mcg PO DAILY Follow-up/Referrals: Nahomy Ward DO [Primary Care Provider, [facility]] - 1 Week Time of Disposition: 11:04
== END 2025-07-31 11:10 | disposition home or self-care (01) ==
PROVIDERS: Emergency Provider Emergency Medicine; PCP Family Medicine
DX: S41.112A Laceration without foreign body of left upper arm, initial encounter (principal); W26.0XXA Contact with knife, initial encounter
CPT/HCPCS: 12002; 99282; J2003